=== PATIENT | female | born 2000 | race Caucasian/White ===

== ENCOUNTER 2025-08-07 12:42 | Emergency (ER) | payer OTHER | END 2025-08-07 13:01 | disposition home or self-care (01) | LOC: DL.ED 12:42 | DX: T19.2XXA Foreign body in vulva and vagina, initial encounter (principal); W44.8XXA Other foreign body entering into or through a natural orifice, initial encounter; Y93.89 Activity, other specified | CPT/HCPCS: 99283 ==